=== PATIENT | female | born 1970 | race Two or more races ===

== ENCOUNTER 2019-01-17 16:37 | Inpatient (IN) | payer OTHER ==
[~2019-01-17] VITALS: Ht 154.9 cm; Wt 108.2 kg
[2019-01-17] MEDS ORDERED: GLIP5 PO (16:49)
[2019-01-17] MEDS ORDERED: METF-960 PO (16:49)
[2019-01-17] MEDS ORDERED: LISI-660 PO (16:49)
[2019-01-17] MEDS ORDERED: FURO40 PO (16:49)
[2019-01-17] MEDS ORDERED: MORPHINE SULFATE 4 MG/ML SYRINGE IM ONE (17:00)
[2019-01-17] MEDS ORDERED: ONDANSETRON HCL 4 MG/2 ML VIAL IM ONE (17:00)
[2019-01-17] MEDS ORDERED: KETOROLAC TROMETHAMINE 30 MG/ML VIAL IVP ONE (23:30)
[2019-01-17] MEDS ORDERED: ACETAMINOPHEN 325 MG TABLET PO PRN (23:30)
[2019-01-17] MEDS ORDERED: MORPHINE SULFATE 2 MG/ML SYRINGE IVP PRN (23:30)
[2019-01-17] MEDS ORDERED: ONDANSETRON HCL 4 MG/2 ML VIAL IVP PRN ×2 (23:30→23:45)
[2019-01-17] MEDS ORDERED: OxyCODONE HCL/ACETAMINOPHEN 5-325 MG TABLET PO PRN (23:30)
[2019-01-17] MEDS ORDERED: 0.9% SODIUM CHLORIDE 10 ML SYRINGE IVP PRN ×2 (23:30→23:45)
[2019-01-17 23:36] LABS: BASOPHILS % (AUTO) 0.9 % (0.0-2.0); EOSINOPHILS % (AUTO) 1.1 % (1.0-6.0); HEMATOCRIT 36.1 % (36-46); HEMOGLOBIN 11.1 g/dL (12.0-16.0); LYMPHOCYTES # (AUTO) 0.9 K/uL (1.0-4.8); LYMPHOCYTES % (AUTO) 19.1 % (22.0-44.0); MEAN CORPUSCULAR HGB CONC 30.7 G/dL (31.0-37.0); MEAN CORPUSCULAR VOLUME 85 fL (80-100); MONOCYTES # (AUTO) 0.5 K/uL (0.1-1.0); MONOCYTES % (AUTO) 11.2 % (2.0-9.0); NEUTROPHILS # (AUTO) 3.3 K/uL (1.8-7.7); NEUTROPHILS % (AUTO) 67.7 % (40.0-70.0); PLATELET COUNT (AUTO) 162 K/uL (150-450); RED BLOOD CELL COUNT(AUTO) 4.27 MIL/uL (4.00-5.20); RED CELL DISTRIBUTION WIDTH 24.8 % (11.5-14.5)
[2019-01-17] MEDS ORDERED: DEXTROSE 50%-WATER 25 GM/50 ML SYRINGE IVP PRN (23:45)
[2019-01-18] VITALS (8 sets, daily range): BP systolic 109–158; BP diastolic 66–110
[2019-01-18 00:08] LABS: CALCIUM, TOTAL 8.2 mg/dL (8.8-10.5); CREATININE 0.99 mg/dL (0.60-1.30); POTASSIUM 4.1 mmol/L (3.5-5.1)
[2019-01-18 00:11] LABS: INR 1.3 (0.9-1.1); PROTHROMBIN TIME 12.8 SEC (9.4-11.6)
[2019-01-18 00:14] LABS: ALBUMIN 2.7 g/dL (3.4-5.0); BILIRUBIN,TOTAL 1.1 mg/dL (0.1-1.0); TOTAL PROTEIN, SERUM 6.9 g/dL (6.4-8.2)
[2019-01-18 05:37] LABS: BASOPHILS % (AUTO) 0.8 % (0.0-2.0); EOSINOPHILS % (AUTO) 3.2 % (1.0-6.0); HEMATOCRIT 34.9 % (36-46); HEMOGLOBIN 10.8 g/dL (12.0-16.0); LYMPHOCYTES % (AUTO) 25.4 % (22.0-44.0); MEAN CORPUSCULAR HEMOGLOBIN 25.7 pg (26.0-34.0); MEAN CORPUSCULAR HGB CONC 30.8 G/dL (31.0-37.0); MEAN CORPUSCULAR VOLUME 83 fL (80-100); MONOCYTES # (AUTO) 0.5 K/uL (0.1-1.0); MONOCYTES % (AUTO) 13.5 % (2.0-9.0); NEUTROPHILS # (AUTO) 2.3 K/uL (1.8-7.7); NEUTROPHILS % (AUTO) 57.1 % (40.0-70.0); PLATELET COUNT (AUTO) 145 K/uL (150-450); RED BLOOD CELL COUNT(AUTO) 4.19 MIL/uL (4.00-5.20); RED CELL DISTRIBUTION WIDTH 24.4 % (11.5-14.5)
[2019-01-18] MEDS: INSULIN LISPRO 100 UNITS/ML SQ PRN ×3 (06:04→21:43)
[2019-01-18 06:20] LABS: HEMOGLOBIN A1C 7.7 % (4.5-6.2)
[2019-01-18 06:23] LABS: ALBUMIN 2.4 g/dL (3.4-5.0); CALCIUM, TOTAL 8.2 mg/dL (8.8-10.5); CHOL/HDL RATIO 3.1 (3.9-5.7); CREATININE 1.09 mg/dL (0.60-1.30); MAGNESIUM 1.5 mg/dL (1.80-2.40); POTASSIUM 4.2 mmol/L (3.5-5.1); TOTAL PROTEIN, SERUM 6.2 g/dL (6.4-8.2)
[2019-01-18] MEDS: FUROSEMIDE 40 MG TABLET PO SCH (08:25)
[2019-01-18] MEDS: MetFORMIN HCL 500 MG TABLET PO SCH ×2 (08:25→17:25)
[2019-01-18] MEDS: LISINOPRIL 5 MG TABLET PO SCH (08:26)
[2019-01-18] MEDS: PANTOPRAZOLE SODIUM 40 MG DR TABLET PO SCH (08:26)
[2019-01-18] MEDS: DOCUSATE SODIUM 100 MG CAPSULE PO SCH ×2 (08:26→21:36)
[2019-01-18 13:32] LABS: GLUCOMETER DEV NAME(LOC) 4E.2; GLUCOSE,POINT OF CARE 168 MG/DL (70-110)
[2019-01-18 17:28] LABS: GLUCOMETER DEV NAME(LOC) 4E.2; GLUCOSE,POINT OF CARE 189 MG/DL (70-110)
[2019-01-18] MEDS ORDERED: MAGNESIUM OXIDE 400 MG TABLET PO ONE (18:30)
[2019-01-18 21:59] LABS: GLUCOMETER DEV NAME(LOC) 4E.2; GLUCOSE,POINT OF CARE 179 MG/DL (70-110)
[2019-01-19] VITALS (13 sets, daily range): BP systolic 97–162; BP diastolic 72–127
[2019-01-19] MEDS: INSULIN LISPRO 100 UNITS/ML SQ PRN ×4 (06:40→21:23)
[2019-01-19 07:27] LABS: BASOPHILS % (AUTO) 0.8 % (0.0-2.0); EOSINOPHILS % (AUTO) 2.6 % (1.0-6.0); HEMATOCRIT 36.2 % (36-46); HEMOGLOBIN 11.4 g/dL (12.0-16.0); LYMPHOCYTES # (AUTO) 0.9 K/uL (1.0-4.8); LYMPHOCYTES % (AUTO) 19.9 % (22.0-44.0); MEAN CORPUSCULAR HGB CONC 31.5 G/dL (31.0-37.0); MEAN CORPUSCULAR VOLUME 83 fL (80-100); MONOCYTES # (AUTO) 0.4 K/uL (0.1-1.0); MONOCYTES % (AUTO) 9.4 % (2.0-9.0); NEUTROPHILS % (AUTO) 67.3 % (40.0-70.0); PLATELET COUNT (AUTO) 153 K/uL (150-450); RED BLOOD CELL COUNT(AUTO) 4.38 MIL/uL (4.00-5.20)
[2019-01-19 07:44] LABS: ALANINE AMINOTRANSFERASE 9 U/L (12-78); ALBUMIN 2.6 g/dL (3.4-5.0); ALKALINE PHOSPHATASE 152 U/L (46-116); ANION GAP 8 mmol/L (8-16); ASPARTATE AMINOTRANSFERASE 18 U/L (15-37); BILIRUBIN,TOTAL 1.4 mg/dL (0.1-1.0); CALCIUM, TOTAL 8.4 mg/dL (8.8-10.5); CARBON DIOXIDE 28 mmol/L (22-29); CHLORIDE 107 mmol/L (98-107); CREATININE 0.97 mg/dL (0.60-1.30); GLOMERULAR FILTR. RATE CALC > 60 mL/min (>60); GLUCOSE,RANDOM 170 mg/dL (70-110); POTASSIUM 4.4 mmol/L (3.5-5.1); SODIUM SERUM 143 mmol/L (136-145); TOTAL PROTEIN, SERUM 6.7 g/dL (6.4-8.2); UREA NITROGEN, BLOOD 30 mg/dL (7-18)
[2019-01-19] MEDS: MetFORMIN HCL 500 MG TABLET PO SCH ×2 (07:59→17:24)
[2019-01-19] MEDS: DOCUSATE SODIUM 100 MG CAPSULE PO SCH ×2 (07:59→21:20)
[2019-01-19] MEDS: LISINOPRIL 5 MG TABLET PO SCH (07:59)
[2019-01-19] MEDS: FUROSEMIDE 40 MG TABLET PO SCH (07:59)
[2019-01-19] MEDS: PANTOPRAZOLE SODIUM 40 MG DR TABLET PO SCH (07:59)
[2019-01-19] MEDS ORDERED: CloNIDine HCL 0.1 MG TABLET PO ONE (09:15)
[2019-01-19] MEDS ORDERED: METOPROLOL TARTRATE 50 MG TABLET PO ONE (10:00)
[2019-01-19 12:15] LABS: GLUCOMETER DEV NAME(LOC) 6N.1; GLUCOSE,POINT OF CARE 172 MG/DL (70-110)
[2019-01-19] MEDS ORDERED: MAGNESIUM SULFATE 4 GM/WATER 100 ML IV PRN (14:00)
[2019-01-19] MEDS ORDERED: POTASSIUM CHLORIDE 20 MEQ ER TABLET PO PRN (14:00)
[2019-01-19] MEDS ORDERED: POTASSIUM CHL 10 MEQ/WATER 50 ML IV PRN (14:00)
[2019-01-19 14:46] LABS: GLUCOMETER DEV NAME(LOC) 4E.2; GLUCOSE,POINT OF CARE 163 MG/DL (70-110)
[2019-01-19] MEDS ORDERED: SODIUM CHLORIDE 0.9% 250 ML IV ONE (16:48)
[2019-01-19] MEDS: MAGNESIUM SULFATE 2 GM/WATER 50 ML IV PRN (16:59)
[2019-01-19 20:01] LABS: GLUCOMETER DEV NAME(LOC) 6N.1; GLUCOSE,POINT OF CARE 193 MG/DL (70-110)
[2019-01-19] MEDS: ZOLPIDEM TARTRATE 5 MG TABLET PO PRN (21:25)
[2019-01-20 04:25] VITALS: BP 134/86
[2019-01-20 05:08] LABS: GLUCOMETER DEV NAME(LOC) 6N.1; GLUCOSE,POINT OF CARE 166 MG/DL (70-110)
[2019-01-20 07:30] VITALS: BP 143/112
[2019-01-20 08:23] LABS: GLUCOMETER DEV NAME(LOC) 4E.2; GLUCOSE,POINT OF CARE 132 MG/DL (70-110)
[2019-01-20] MEDS: LISINOPRIL 5 MG TABLET PO SCH (08:52)
[2019-01-20] MEDS: MetFORMIN HCL 500 MG TABLET PO SCH ×2 (08:52→17:39)
[2019-01-20] MEDS: FUROSEMIDE 40 MG TABLET PO SCH (08:52)
[2019-01-20] MEDS: PANTOPRAZOLE SODIUM 40 MG DR TABLET PO SCH (08:52)
[2019-01-20] MEDS: DOCUSATE SODIUM 100 MG CAPSULE PO SCH ×2 (08:52→21:14)
[2019-01-20 10:42] LABS: ANION GAP 7 mmol/L (8-16); CALCIUM, TOTAL 8.6 mg/dL (8.8-10.5); CARBON DIOXIDE 28 mmol/L (22-29); CHLORIDE 105 mmol/L (98-107); GLOMERULAR FILTR. RATE CALC > 60 mL/min (>60); GLUCOSE,RANDOM 139 mg/dL (70-110); POTASSIUM 4.5 mmol/L (3.5-5.1); SODIUM SERUM 140 mmol/L (136-145); UREA NITROGEN, BLOOD 29 mg/dL (7-18)
[2019-01-20 10:44] LABS: BASOPHILS % (AUTO) 0.7 % (0.0-2.0); EOSINOPHILS % (AUTO) 2.1 % (1.0-6.0); HEMATOCRIT 36.4 % (36-46); HEMOGLOBIN 11.1 g/dL (12.0-16.0); LYMPHOCYTES # (AUTO) 1.1 K/uL (1.0-4.8); LYMPHOCYTES % (AUTO) 22.7 % (22.0-44.0); MEAN CORPUSCULAR HEMOGLOBIN 25.6 pg (26.0-34.0); MEAN CORPUSCULAR HGB CONC 30.6 G/dL (31.0-37.0); MEAN CORPUSCULAR VOLUME 84 fL (80-100); MONOCYTES # (AUTO) 0.4 K/uL (0.1-1.0); MONOCYTES % (AUTO) 9.4 % (2.0-9.0); NEUTROPHILS % (AUTO) 65.1 % (40.0-70.0); PLATELET COUNT (AUTO) 168 K/uL (150-450); RED BLOOD CELL COUNT(AUTO) 4.35 MIL/uL (4.00-5.20); RED CELL DISTRIBUTION WIDTH 23.9 % (11.5-14.5)
[2019-01-20] MEDS: INSULIN LISPRO 100 UNITS/ML SQ PRN ×2 (11:40→21:21)
[2019-01-20 11:41] VITALS: BP 153/111
[2019-01-20] MEDS: MAGNESIUM SULFATE 2 GM/WATER 50 ML IV PRN (12:13)
[2019-01-20 13:08] LABS: GLUCOMETER DEV NAME(LOC) 4E.2; GLUCOSE,POINT OF CARE 160 MG/DL (70-110)
[2019-01-20 16:09] VITALS: BP 145/93
[2019-01-20] MEDS: CefTRIAXone 1 GM/DEXTROSE 50 ML IV SCH (16:20)
[2019-01-20] MEDS: AZITHROMYCIN 500 MG/NS 250 ML IV SCH (17:37)
[2019-01-20 18:39] LABS: GLUCOMETER DEV NAME(LOC) 6N.2; GLUCOSE,POINT OF CARE 132 MG/DL (70-110)
[2019-01-20 20:02] VITALS: BP 125/89
[2019-01-20 22:08] LABS: GLUCOMETER DEV NAME(LOC) 6N.2; GLUCOSE,POINT OF CARE 236 MG/DL (70-110)
[2019-01-20 23:35] VITALS: BP 138/94
[2019-01-21 04:48] VITALS: BP 144/98
[2019-01-21] MEDS: INSULIN LISPRO 100 UNITS/ML SQ PRN ×2 (06:44→18:40)
[2019-01-21 07:01] LABS: GLUCOMETER DEV NAME(LOC) 6N.2; GLUCOSE,POINT OF CARE 142 MG/DL (70-110)
[2019-01-21 07:52] VITALS: BP 139/87
[2019-01-21 07:52] LABS: BASOPHILS % (AUTO) 0.5 % (0.0-2.0); EOSINOPHILS % (AUTO) 1.6 % (1.0-6.0); HEMATOCRIT 39.3 % (36-46); LYMPHOCYTES # (AUTO) 0.8 K/uL (1.0-4.8); LYMPHOCYTES % (AUTO) 15.7 % (22.0-44.0); MEAN CORPUSCULAR HEMOGLOBIN 25.4 pg (26.0-34.0); MEAN CORPUSCULAR HGB CONC 30.4 G/dL (31.0-37.0); MEAN CORPUSCULAR VOLUME 83 fL (80-100); MONOCYTES # (AUTO) 0.6 K/uL (0.1-1.0); MONOCYTES % (AUTO) 12.7 % (2.0-9.0); NEUTROPHILS # (AUTO) 3.4 K/uL (1.8-7.7); NEUTROPHILS % (AUTO) 69.5 % (40.0-70.0); PLATELET COUNT (AUTO) 152 K/uL (150-450); RED BLOOD CELL COUNT(AUTO) 4.72 MIL/uL (4.00-5.20); RED CELL DISTRIBUTION WIDTH 23.4 % (11.5-14.5)
[2019-01-21 08:04] LABS: ANION GAP 6 mmol/L (8-16); CALCIUM, TOTAL 8.7 mg/dL (8.8-10.5); CARBON DIOXIDE 30 mmol/L (22-29); CHLORIDE 107 mmol/L (98-107); CREATININE 0.83 mg/dL (0.60-1.30); GLOMERULAR FILTR. RATE CALC > 60 mL/min (>60); GLUCOSE,RANDOM 142 mg/dL (70-110); POTASSIUM 4.2 mmol/L (3.5-5.1); SODIUM SERUM 143 mmol/L (136-145); UREA NITROGEN, BLOOD 27 mg/dL (7-18)
[2019-01-21] MEDS: FUROSEMIDE 40 MG TABLET PO SCH (08:43)
[2019-01-21] MEDS: MetFORMIN HCL 500 MG TABLET PO SCH ×2 (08:43→19:19)
[2019-01-21] MEDS: PANTOPRAZOLE SODIUM 40 MG DR TABLET PO SCH (08:43)
[2019-01-21] MEDS: LISINOPRIL 5 MG TABLET PO SCH (08:43)
[2019-01-21] MEDS: DOCUSATE SODIUM 100 MG CAPSULE PO SCH ×2 (08:43→19:56)
[2019-01-21 11:22] VITALS: BP 105/84
[2019-01-21] MEDS ORDERED: HYDROCODONE/ACETAMINOPHEN 5-325 MG TABLET PO PRN (13:45)
[2019-01-21] MEDS ORDERED: ACETAMINOPHEN 325 MG TABLET PO PRN (13:45)
[2019-01-21] MEDS: CefTRIAXone 1 GM/DEXTROSE 50 ML IV SCH (15:50)
[2019-01-21 15:52] VITALS: BP 151/85
[2019-01-21] MEDS: AZITHROMYCIN 500 MG/NS 250 ML IV SCH (16:08)
[2019-01-21 19:41] VITALS: BP 145/94
[2019-01-21 20:42] LABS: GLUCOMETER DEV NAME(LOC) 4E.2; GLUCOSE,POINT OF CARE 125 MG/DL (70-110)
[2019-01-21] MEDS: MAGNESIUM OXIDE 400 MG TABLET PO PRN (21:13)
[2019-01-21 23:22] VITALS: BP 135/86
[2019-01-22 02:50] LABS: GLUCOMETER DEV NAME(LOC) 5N.1; GLUCOSE,POINT OF CARE 180 MG/DL (70-110)
[2019-01-22 02:50] LABS: GLUCOMETER DEV NAME(LOC) 5N.1; GLUCOSE,POINT OF CARE 160 MG/DL (70-110)
[2019-01-22] MEDS: MAGNESIUM OXIDE 400 MG TABLET PO PRN ×2 (03:08→09:27)
[2019-01-22 05:35] VITALS: BP 123/88
[2019-01-22 07:55] VITALS: BP 136/90
[2019-01-22] MEDS: MetFORMIN HCL 500 MG TABLET PO SCH ×2 (09:27→16:52)
[2019-01-22] MEDS: PANTOPRAZOLE SODIUM 40 MG DR TABLET PO SCH (09:27)
[2019-01-22] MEDS: DOCUSATE SODIUM 100 MG CAPSULE PO SCH ×2 (09:27→20:44)
[2019-01-22] MEDS: LISINOPRIL 5 MG TABLET PO SCH (09:28)
[2019-01-22] MEDS: FUROSEMIDE 40 MG TABLET PO SCH (09:29)
[2019-01-22 11:46] VITALS: BP 141/99
[2019-01-22] MEDS: INSULIN LISPRO 100 UNITS/ML SQ PRN ×2 (12:17→20:59)
[2019-01-22 15:48] VITALS: BP 152/104
[2019-01-22] MEDS: AZITHROMYCIN 500 MG/NS 250 ML IV SCH (16:51)
[2019-01-22] MEDS: CefTRIAXone 1 GM/DEXTROSE 50 ML IV SCH (16:51)
[2019-01-22 18:54] LABS: GLUCOMETER DEV NAME(LOC) 5N.1; GLUCOSE,POINT OF CARE 140 MG/DL (70-110)
[2019-01-22 18:55] LABS: GLUCOMETER DEV NAME(LOC) 5N.2; GLUCOSE,POINT OF CARE 128 MG/DL (70-110)
[2019-01-22 18:55] LABS: GLUCOMETER DEV NAME(LOC) 5N.2; GLUCOSE,POINT OF CARE 171 MG/DL (70-110)
[2019-01-22 19:43] VITALS: BP 128/93
[2019-01-22] MEDS: METOPROLOL TARTRATE 25 MG TABLET PO SCH (20:45)
[2019-01-22] MEDS: MAGNESIUM SULFATE 2 GM/WATER 50 ML IV PRN (20:48)
[2019-01-22 23:17] VITALS: BP 123/86
[2019-01-23 00:18] LABS: GLUCOMETER DEV NAME(LOC) 5N.1; GLUCOSE,POINT OF CARE 153 MG/DL (70-110)
[2019-01-23] MEDS: ZOLPIDEM TARTRATE 5 MG TABLET PO PRN (01:47)
[2019-01-23 04:53] VITALS: BP 130/91
[2019-01-23 07:37] LABS: GLUCOMETER DEV NAME(LOC) 5N.2; GLUCOSE,POINT OF CARE 140 MG/DL (70-110)
[2019-01-23 07:51] VITALS: BP 142/97
[2019-01-23] MEDS: MetFORMIN HCL 500 MG TABLET PO SCH ×2 (08:57→18:23)
[2019-01-23] MEDS: MAGNESIUM OXIDE 400 MG TABLET PO PRN ×2 (08:58→16:53)
[2019-01-23] MEDS: PANTOPRAZOLE SODIUM 40 MG DR TABLET PO SCH (08:58)
[2019-01-23] MEDS: DOCUSATE SODIUM 100 MG CAPSULE PO SCH (08:58)
[2019-01-23] MEDS: LISINOPRIL 5 MG TABLET PO SCH (08:58)
[2019-01-23] MEDS: METOPROLOL TARTRATE 25 MG TABLET PO SCH (08:58)
[2019-01-23] MEDS: FUROSEMIDE 40 MG TABLET PO SCH (08:58)
[2019-01-23 11:18] VITALS: BP 129/94
[2019-01-23] MEDS: INSULIN LISPRO 100 UNITS/ML SQ PRN ×2 (12:22→18:24)
[2019-01-23] MEDS ORDERED: METO25 PO (14:12)
[2019-01-23] MEDS ORDERED: CEFX1I IV (14:12)
[2019-01-23] MEDS ORDERED: PANT40TA25 PO (14:13)
[2019-01-23] MEDS ORDERED: INSU100V SQ (14:17)
[2019-01-23] MEDS: CefTRIAXone 1 GM/DEXTROSE 50 ML IV SCH (14:27)
[2019-01-23] MEDS: AZITHROMYCIN 500 MG/NS 250 ML IV SCH (15:32)
[2019-01-23 16:23] VITALS: BP 131/99
[2019-01-24 02:49] LABS: GLUCOMETER DEV NAME(LOC) 5N.1; GLUCOSE,POINT OF CARE 170 MG/DL (70-110)
[2019-01-24 02:49] LABS: GLUCOMETER DEV NAME(LOC) 5N.1; GLUCOSE,POINT OF CARE 154 MG/DL (70-110)
== END 2019-01-23 19:13 | DRG 342 ==
LOC: EMS 18:29 → 4E 23:00 → 6N 01-19 08:16 → 4E 01-19 22:09 → 5S 01-21 16:35
PROVIDERS: ADMIT Internal Medicine; ATTEND Internal Medicine
PROC: 2W3LX1Z Immobilization of Right Lower Extremity using Splint (ICD-10-PCS; principal; 2019-01-17)
DX: S82.144A Nondisplaced bicondylar fracture of right tibia, initial encounter for closed fracture (principal); J18.9 Pneumonia, unspecified organism; I11.0 Hypertensive heart disease with heart failure; E66.01 Morbid (severe) obesity due to excess calories; I50.30 Unspecified diastolic (congestive) heart failure; J44.0 Chronic obstructive pulmonary disease with (acute) lower respiratory infection; I08.1 Rheumatic disorders of both mitral and tricuspid valves; E11.9 Type 2 diabetes mellitus without complications; W01.0XXA Fall on same level from slipping, tripping and stumbling without subsequent striking against object, initial encounter; F15.90 Other stimulant use, unspecified, uncomplicated; E78.5 Hyperlipidemia, unspecified; Z59.0 Homelessness; Z82.49 Family history of ischemic heart disease and other diseases of the circulatory system; Z91.19 Patient's noncompliance with other medical treatment and regimen; Z68.42 Body mass index [BMI] 45.0-49.9, adult; Y93.89 Activity, other specified; Y92.488 Other paved roadways as the place of occurrence of the external cause; Y99.8 Other external cause status; Z79.899 Other long term (current) drug therapy
CPT/HCPCS: 73552; 73700; 76700; 83036; 83735; 87081; 93005; 93306; 96372; 96374; 97162; 97166; 97530; 97535; G0378; J0456; J0696; J1885; J2270; J2405; J3475; J7050

== ENCOUNTER 2019-01-28 21:04 | Inpatient (IN) | payer OTHER ==
[~2019-01-28] VITALS: Ht 160 cm; Wt 104.3 kg
[~2019-01-28 21:04] MED LIST: CEFX1I IV; FURO40 PO; INSU100V SQ; LISI-660 PO; METF-960 PO; METO25 PO; PANT40TA25 PO
[2019-01-28 21:51] LABS: EOSINOPHILS % (AUTO) 1.5 % (1.0-6.0); HEMATOCRIT 33.9 % (36-46); HEMOGLOBIN 10.6 g/dL (12.0-16.0); LYMPHOCYTES % (AUTO) 18.1 % (22.0-44.0); MEAN CORPUSCULAR HEMOGLOBIN 25.8 pg (26.0-34.0); MEAN CORPUSCULAR HGB CONC 31.3 G/dL (31.0-37.0); MEAN CORPUSCULAR VOLUME 82 fL (80-100); MONOCYTES # (AUTO) 0.6 K/uL (0.1-1.0); MONOCYTES % (AUTO) 10.9 % (2.0-9.0); NEUTROPHILS # (AUTO) 3.6 K/uL (1.8-7.7); NEUTROPHILS % (AUTO) 68.5 % (40.0-70.0); PLATELET COUNT (AUTO) 168 K/uL (150-450); RED BLOOD CELL COUNT(AUTO) 4.12 MIL/uL (4.00-5.20); RED CELL DISTRIBUTION WIDTH 23.2 % (11.5-14.5)
[2019-01-28 22:00] LABS: ANION GAP 11 mmol/L (8-16); CALCIUM, TOTAL 8.3 mg/dL (8.8-10.5); CARBON DIOXIDE 26 mmol/L (22-29); CHLORIDE 107 mmol/L (98-107); GLOMERULAR FILTR. RATE CALC 59 mL/min (>60); GLUCOSE,RANDOM 201 mg/dL (70-110); SODIUM SERUM 144 mmol/L (136-145); UREA NITROGEN, BLOOD 22 mg/dL (7-18)
[2019-01-28] MEDS ORDERED: NITROGLYCERIN 2% (1 GM=INCH) PACKET TP ONE (22:00)
[2019-01-28] MEDS ORDERED: FUROSEMIDE 40 MG/4 ML VIAL IVP ONE (22:00)
[2019-01-28 22:05] LABS: ALANINE AMINOTRANSFERASE 14 U/L (12-78); ALBUMIN 2.5 g/dL (3.4-5.0); ALKALINE PHOSPHATASE 163 U/L (46-116); ASPARTATE AMINOTRANSFERASE 24 U/L (15-37); TOTAL PROTEIN, SERUM 6.5 g/dL (6.4-8.2)
[2019-01-28 22:09] LABS: B-TYPE NATRIURETIC PEPTIDE 1060 pg/mL (0-100)
[2019-01-28] MEDS ORDERED: IOVERSOL 350 MG/ML 100 ML VIAL ONE (23:06)
[2019-01-28 23:16] LABS: HCG,QUANTITATIVE < 1 mIU/mL (0-6)
[2019-01-29] MEDS ORDERED: ACETAMINOPHEN 325 MG TABLET PO PRN (00:30)
[2019-01-29] MEDS ORDERED: MORPHINE SULFATE 2 MG/ML SYRINGE IVP PRN (00:30)
[2019-01-29] MEDS ORDERED: BISACODYL 10 MG RECTAL RECTAL SUPPOSITORY PR PRN (00:30)
[2019-01-29] MEDS ORDERED: MAGNESIUM HYDROXIDE SUSPENSION 30 ML UDCUP PO PRN (00:30)
[2019-01-29] MEDS ORDERED: HYDROCODONE/ACETAMINOPHEN 5-325 MG TABLET PO PRN (00:30)
[2019-01-29] MEDS ORDERED: ZOLPIDEM TARTRATE 5 MG TABLET PO PRN (00:30)
[2019-01-29] MEDS ORDERED: ONDANSETRON HCL 4 MG/2 ML VIAL IVP PRN (00:30)
[2019-01-29 01:27] VITALS: BP 134/98
[2019-01-29 04:45] VITALS: BP 143/98
[2019-01-29] MEDS: GlipiZIDE 5 MG TABLET PO SCH (06:22)
[2019-01-29 07:50] VITALS: BP 121/86
[2019-01-29 08:05] LABS: GLUCOMETER DEV NAME(LOC) 5N.1; GLUCOSE,POINT OF CARE 118 MG/DL (70-110)
[2019-01-29] MEDS: DOCUSATE SODIUM 100 MG CAPSULE PO SCH ×2 (09:00→20:35)
[2019-01-29] MEDS ORDERED: FUROSEMIDE 40 MG TABLET PO SCH (09:00)
[2019-01-29] MEDS: MetFORMIN HCL 500 MG TABLET PO SCH ×2 (09:14→17:27)
[2019-01-29] MEDS: HEPARIN SODIUM,PORCINE 5,000 UNITS/ML VIAL SQ SCH ×3 (09:15→23:29)
[2019-01-29] MEDS: LISINOPRIL 5 MG TABLET PO SCH (09:18)
[2019-01-29] MEDS: PANTOPRAZOLE SODIUM 40 MG DR TABLET PO SCH (09:18)
[2019-01-29] MEDS: METOPROLOL TARTRATE 25 MG TABLET PO SCH (09:18)
[2019-01-29 15:32] VITALS: BP 138/88
[2019-01-29 19:43] VITALS: BP 141/103
[2019-01-30 00:09] VITALS: BP 142/85
[2019-01-30 05:38] VITALS: BP 146/98
[2019-01-30] MEDS: GlipiZIDE 5 MG TABLET PO SCH (06:34)
[2019-01-30 07:54] VITALS: BP 128/93
[2019-01-30] MEDS: HEPARIN SODIUM,PORCINE 5,000 UNITS/ML VIAL SQ SCH ×2 (08:00→15:49)
[2019-01-30] MEDS: DOCUSATE SODIUM 100 MG CAPSULE PO SCH (08:18)
[2019-01-30] MEDS: PANTOPRAZOLE SODIUM 40 MG DR TABLET PO SCH (08:18)
[2019-01-30] MEDS: METOPROLOL TARTRATE 25 MG TABLET PO SCH (08:18)
[2019-01-30] MEDS: LISINOPRIL 5 MG TABLET PO SCH (08:18)
[2019-01-30] MEDS: MetFORMIN HCL 500 MG TABLET PO SCH ×2 (08:18→17:10)
[2019-01-30] MEDS ORDERED: FUROSEMIDE 40 MG/4 ML VIAL IVP SCH (09:00)
[2019-01-30] MEDS ORDERED: GLIP5 PO (10:48)
[2019-01-30 12:12] VITALS: BP 119/80
[2019-01-30] MEDS ORDERED: PIPERONYL BUTOXIDE/PYRETHRINS 120 ML SHAMPOO TP ONE (16:00)
[2019-01-30 16:54] VITALS: BP 140/86
== END 2019-01-30 18:00 | DRG 194 ==
LOC: EMS 21:05 → 5S 01-29 00:40
PROVIDERS: ADMIT Internal Medicine; ATTEND Internal Medicine
DX: I11.0 Hypertensive heart disease with heart failure (principal); I27.20 Pulmonary hypertension, unspecified; E66.01 Morbid (severe) obesity due to excess calories; I08.1 Rheumatic disorders of both mitral and tricuspid valves; B85.0 Pediculosis due to Pediculus humanus capitis; S82.144D Nondisplaced bicondylar fracture of right tibia, subsequent encounter for closed fracture with routine healing; I50.33 Acute on chronic diastolic (congestive) heart failure; J98.11 Atelectasis; E11.9 Type 2 diabetes mellitus without complications; D64.9 Anemia, unspecified; E78.5 Hyperlipidemia, unspecified; J45.909 Unspecified asthma, uncomplicated; X58.XXXD Exposure to other specified factors, subsequent encounter; Z91.19 Patient's noncompliance with other medical treatment and regimen; Z86.79 Personal history of other diseases of the circulatory system; Z59.0 Homelessness
CPT/HCPCS: 71260; 85379; 87081; 93005; 96374; 97162; 97166; 97530; 97535; J1644; J1940